=== PATIENT | female | born 1980 | race Caucasian/White ===

== ENCOUNTER 2017-07-28 08:02 | Emergency (ER) | payer OTHER ==
[2017-07-28 08:09] VITALS: BP 114/66
--- NOTE | 2017-07-28 08:53 | RAD ---
HISTORY: Left wrist trauma, pain COMPARISONS: None VIEWS: 3, Frontal, lateral, and oblique views of the left wrist FINDINGS: BONE DENSITY: Normal. BONES: There is no displaced fracture. There is a bone island of the fourth metacarpal. JOINTS: There is no arthropathy. ALIGNMENT: There is no dislocation. SOFT TISSUES: Unremarkable. OTHER FINDINGS: None. IMPRESSION: NO ACUTE OSSEOUS INJURY. IF SYMPTOMS PERSIST, RECOMMEND REPEAT IMAGING.
--- NOTE | 2017-07-28 08:57 | UC ---
Hand/Wrist HPI - HPI Summary HPI Summary: INJURED LEFT WRIST 4 DAYS AGO WHILE MOVING FURNITURE. ALSO HAS TWIN 8 MONTH OLDS AND IS LIFTING THEM A LOT. HAS HAD WORSENING PAIN ULNAR SIDE LEFT WRIST. NO SWELLING. - History Of Current Complaint Chief Complaint: UCUpperExtremity Stated Complaint: WRIST INJURY Time Seen by Provider: 07/28/17 08:27 Hx Obtained From: Patient Hx Last Menstrual Period: breast feeding Onset/Duration: Sudden Onset, Lasting Days, Still Present Severity Initially: Moderate Severity Currently: Moderate Pain Intensity: 3 Pain Scale Used: 0-10 Numeric Character Of Pain: Aching Aggravating Factor(s): Movement Alleviating Factor(s): Rest Related History: Dominant Hand Right - Allergies/Home Medications Allergies/Adverse Reactions: Allergies Allergy/AdvReac Type Severity Reaction Status Date / Time Clindamycin Allergy Severe GI ISSUES Verified 07/28/17 08:09 Sulfa Antibiotics Allergy Unknown Unknown Verified 07/28/17 08:09 Reaction Details Penicillins Allergy Hives Verified 07/28/17 08:09 Home Medications: Home Medications NK [No Home Medications Reported] 07/28/17 [History Confirmed 07/28/17] PMH/Surg Hx/FS Hx/Imm Hx - Additional Past Medical History Additional PMH: ENDOMETRIOSIS - Surgical History Surgical History: Yes Surgery Procedure, Year, and Place: Edometriosis, 2011 and 2013 - Family History Known Family History: Positive: Hypertension - Social History Alcohol Use: Occasionally Substance Use Type: None Smoking Status (MU): Former Smoker Review of Systems Constitutional: Negative Skin: Negative Respiratory: Negative Cardiovascular: Negative Gastrointestinal: Negative Musculoskeletal: Arthralgia, Decreased ROM All Other Systems Reviewed And Are Negative: Yes Physical Exam Triage Information Reviewed: Yes Appearance: Well-Appearing, No Pain Distress, Well-Nourished Vital Signs: Initial Vital Signs Temp 98.3 F 07/28/17 08:05 Pulse 79 07/28/17 08:05 Resp 16 07/28/17 08:05 BP 114/66 07/28/17 08:05 Pulse Ox 100 07/28/17 08:05 Vital Signs Reviewed: Yes Eyes: Positive: Conjunctiva Clear ENT: Positive: Hearing grossly normal Neck: Positive: Supple Respiratory: Positive: No respiratory distress, No accessory muscle use Cardiovascular: Positive: Pulses Normal Abdomen Description: Positive: Soft Musculoskeletal: Positive: No Edema, ROM Limited @ - LEFT WRIST, Other: - TTP ULNAR STYLOID AND ULNAR SIDE OF WRIST Neurological: Positive: Alert Psychological: Positive: Age Appropriate Behavior Skin: Negative: rashes Diagnostics - Radiology LEFT WRIST XRAY Xray Interpretation: No Acute Changes Radiology Interpretation Completed By: Radiologist Hand/Wrist Course/Dx - Differential Dx/Diagnosis Differential Diagnosis/HQI/PQRI: Dislocation Provider Diagnoses: LEFT WRIST SPRAIN Discharge - Discharge Plan Condition: Stable Disposition: HOME Patient Education Materials: Wrist Sprain (ED) Referrals: [facility] [Provider Group] - 2 Weeks Sonali Becerril NP [Primary Care Provider] - If Needed Additional Instructions: XRAYS UNREMARKABLE TODAY. SPLINT NEEDED FOR COMFORT. OTC MEDS NEEDED FOR PAIN. IF NOT IMPROVING OVER THE NEXT 1-2 WEEKS SEEK FOLLOW-UP WITH PCP OR ORTHO.
== END 2017-07-28 09:08 | disposition home or self-care (01) ==
LOC: UCEAST 08:02
DX: S63.502A Unspecified sprain of left wrist, initial encounter (principal); X50.0XXA Overexertion from strenuous movement or load, initial encounter; Y92.9 Unspecified place or not applicable; Z88.3 Allergy status to other anti-infective agents; Z88.0 Allergy status to penicillin; Z88.2 Allergy status to sulfonamides; Z87.891 Personal history of nicotine dependence; Z87.42 Personal history of other diseases of the female genital tract
CPT/HCPCS: 99211; G0463

== ENCOUNTER 2018-04-07 16:47 | Emergency (ER) | payer OTHER ==
[2018-04-07 17:02] VITALS: BP 111/67
[2018-04-07] MEDS ORDERED: Ketorolac INJ* 30 MG/ML 1 ML VIAL IM ONE (17:16)
--- NOTE | 2018-04-07 17:23 | UC ---
Abdominal Pain Female HPI - HPI Summary HPI Summary: 38 yo female with onset of LLQ abd pain 2 days ago constant 8/10 no change with position or with OTC meds percocet did not help no UTI symptoms no vag d/c or itch hx of stage 4 endometriosis this pain is worse than she ever had with endometrial cyst rupture no f/c no n/v/d Patient states she is here for an U/S - History of Current Complaint Chief Complaint: UCAbdominalPain Stated Complaint: ABDOMINAL PAIN Time Seen by Provider: 04/07/18 16:58 Hx Obtained From: Patient Hx Last Menstrual Period: 03/25/2018 Onset/Duration: Gradual Onset Timing: Constant Severity Initially: Severe Severity Currently: Severe Pain Intensity: 8 Pain Scale Used: 0-10 Numeric Location: Discrete At: LLQ Radiates: No Character: Unable to describe Aggravating Factor(s): Nothing Alleviating Factor(s): Nothing Associated Signs and Symptoms: Positive: Negative Allergies/Adverse Reactions: Allergies Allergy/AdvReac Type Severity Reaction Status Date / Time Penicillins Allergy Hives Verified 04/07/18 17:03 Sulfa (Sulfonamide Allergy Unknown Verified 04/07/18 17:04 Antibiotics) Reaction Details PMH/Surg Hx/FS Hx/Imm Hx Previously Healthy: Yes - Surgical History Surgical History: Yes Surgery Procedure, Year, and Place: Edometriosis, 2012 and 2013 - Family History Known Family History: Positive: Hypertension, Other - hx kidney stones - Social History Alcohol Use: Occasionally Substance Use Type: None Smoking Status (MU): Former Smoker Review of Systems Constitutional: Negative Skin: Negative Eyes: Negative ENT: Negative Respiratory: Negative Cardiovascular: Negative Gastrointestinal: Abdominal Pain Genitourinary: Negative Motor: Negative Neurovascular: Negative Musculoskeletal: Negative Neurological: Negative Psychological: Negative Is Patient Immunocompromised?: No All Other Systems Reviewed And Are Negative: Yes Physical Exam Triage Information Reviewed: Yes Appearance: Well-Appearing, No Pain Distress, Well-Nourished Vital Signs: Initial Vital Signs Temp 97.3 F 04/07/18 16:54 Pulse 85 04/07/18 16:54 Resp 16 04/07/18 16:54 BP 111/67 04/07/18 16:54 Pulse Ox 98 04/07/18 16:54 Vital Signs Reviewed: Yes Eyes: Positive: Conjunctiva Clear ENT: Positive: Hearing grossly normal, Uvula midline. Negative: Nasal congestion, Nasal drainage, Tonsillar swelling, Tonsillar exudate, Trismus, Muffled voice Neck: Positive: Supple, Nontender Respiratory: Positive: Lungs clear, Normal breath sounds, No respiratory distress, No accessory muscle use Cardiovascular: Positive: RRR, No Murmur Abdomen Description: Negative: Nontender - tender LLQ, CVA Tenderness (R), CVA Tenderness (L), Distended, Guarding Musculoskeletal: Positive: ROM Intact, No Edema Neurological: Positive: Alert Psychological Exam: Normal Skin Exam: Normal Abd Pain Female Course/Dx - Course Course Of Treatment: Pt came out of the room and states she wants to go to the ER now. Declines toradol, declines providing a urine. States her wants here home [place] to help care for the 16 mo twins. She wishes to drive there. - Differential Dx/Diagnosis Provider Diagnoses: Left LQ abd pain of uncertain cause Discharge - Sign-Out/Discharge Documenting (check all that apply): Discharge/Admit/Transfer - Discharge Plan Condition: Stable Disposition: TRANS HIGHER LVL OF CARE FAC Referrals: Sonali Becerril NP [Primary Care Provider] - Additional Instructions: I suggest you go to the ER - Billing Disposition and Condition Condition: STABLE Disposition: Trans Higher Lvl of Care Fac
== END 2018-04-07 17:28 | disposition short-term general hospital (02) ==
LOC: UCEAST 16:47
DX: R10.32 Left lower quadrant pain (principal); Z87.891 Personal history of nicotine dependence; Z87.42 Personal history of other diseases of the female genital tract
CPT/HCPCS: 99212; G0463; J1885

== ENCOUNTER 2018-04-07 17:54 | Emergency (ER) | payer OTHER ==
[2018-04-07 18:02] VITALS: BP 114/74
== END 2018-04-07 20:01 | disposition left against medical advice (07) ==
LOC: ED 17:54
DX: R10.9 Unspecified abdominal pain (principal); Z53.21 Procedure and treatment not carried out due to patient leaving prior to being seen by health care provider

== ENCOUNTER 2018-05-01 19:54 | Emergency (ER) | payer OTHER ==
--- OUTSIDE RECORDS SUMMARY | 2018-05-01 20:00 | XMS REPORT ---
:1980 External Reference #:[id number] Author Organization [facility] Address [address] [place] [address] Phone [phone] Care Team Providers Name Role Phone Lisseth Verma M.D. Care Team Information Geriatric Physical Therapist Unavailable Lisseth Verma M.D. Primary Care Physician Unavailable Payers Type Date Identification Payment Subscriber Numbers Provider Health Maintenance Effective: Policy Number: Tomi Ewing Organization (O) 10/25/2016 [id number] [employer] Group Number: [id number] [id number] PayID: [id number] [place] [address] Problems Description No Active Problems Family History Date Family Member(s) Problem(s) Comments Father 74 Father Stroke Father carotid stenosis Father Amyotrophic Lateral Sclerosis Mother 71 Mother Cardiac Arrhythmia Paternal Grandmother due to Alzheimer's Disease () Paternal Grandmother due to Dementia () Maternal Grandfather 47 Maternal Grandfather due to CAD () Maternal Grandmother Breast Cancer Paternal Aunts due to Lung Cancer () Social History Type Date Description Comments Marital Status Legal Status: Lives With Spouse Lives With Son twins Lives With Daughter Diet Healthy, Well Balanced 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, director finance administration Cigarette Use Denies Tobacco Use ETOH Use Denies alcohol use Smoking Nonsmoker Exercise Type/Frequency Exercises sporadically Allergies, Adverse Reactions, Alerts Date Description Reaction Status Severity Comments 06/14/2015 Sulfa unknown, childhood active 06/14/2015 Penicillin rash active Medications Medication Date Status Form Strength Qnty SIG Indications Ordering Provider Tramadol HCL 04/09 Active Tablets 50mg 30tab 1-2 every 6 N80.8 s hours as Jerrica, needed pain by CORN BREEDER mouth No Active 12/15 Hx Unknown Medications /2017 - 04/09 Flovent HFA 08/18 Hx Aerosol 110mcg/Ac 24gm 2 puffs Maria Antonia C. /2016 t inhaled twice Jose Alberto, - daily EDUCATIONAL THERAPY TEACHER 12/15 Medrol 08/17 Hx Tablets 4mg 1tabs take dose pack Antonio Galaviz as directed Carlos, - wait 4 hours EDUCATIONAL THERAPY TEACHER 12/15 after dose /2017 before , otherwise pump and dump Tessalon 08/17 Hx Capsules 100mg 30cap take 2 tablets Antonio Rees s every 8 hours Carlos, - as needed for EDUCATIONAL THERAPY TEACHER 12/15 cough Fluconazole 12/14 Hx Tablets 150mg 6tabs 1 by mouth every other Jerrica, - day x 3 doses; CORN BREEDER 08/17 if, in one week, symptoms persist, repeat Nystatin 12/14 Hx Cream [id number] 30gm apply t/GM sparingly to Jerrica, - bilateral CORN BREEDER 08/17 nipples times daily, no need to wash off prior to Zofran Odt 10/24 Hx Tablets 4mg 15tab 1 unit by Dispers s mouth every 6 [place], - hours as M.D. 08/17 needed Prednisone 10/03 Hx Tablets 10mg 10tab 1 by mouth Sonali () s twice a day x [facility], - 5 days CORN BREEDER 03/21 Biaxin 09/30 Hx Tablets 250mg 14tab take one s tablet by [facility], - mouth twice a CORN BREEDER 03/21 day x 7 finish all medication Cheratussin 09/30 Hx Solution 30-10-100 100ml 5 milliliters mg/5ML by mouth every Jerrica, - 12 hours as CORN BREEDER 03/21 needed cough Benzonatate 09/30 Hx Capsules 100mg 45cap 1 by mouth s three times a [facility], - day as needed CORN BREEDER 08/17 coughing Progesterone Hx Capsules 200mg take 1 capsule Unknown Micronized /0000 at bedtime - 07/09 Estrogen 00/00 Hx ivf Unknown /0000 - 07/09 Aspir-81 Hx Tablets 81mg 1 by mouth Unknown /0000 DR every day - 07/09 Multivitamins Hx Capsules 1 by mouth Unknown /0000 every day - 07/09 00 Hx Tablets Unknown /0000 - 08/17 Cefuroxime Hx Tablets 500mg 1 by mouth Unknown Axetil /0000 twice a day - 12/15 Proventil HFA Hx Aerosol 108(90Bas inhale 1-2 Unknown /0000 e) puffs every 4 - mcg/Act hours as 12/15 needed for wheezing or cough Medications Administered in Office Medication Date Status Form Strength Qnty SIG Indications Ordering Provider Injection Injection Sonali Subcutaneous Or 2018 Jerrica, Intramuscular CORN BREEDER Immunizations CPT Code Status Date Vaccine Lot # [id number] Given 07/09/2015 MMR Virus Immunization [id number] Vital Signs Date Vital Result Comment 04/09/2018 BP Systolic 100 mmHg BP Diastolic 62 mmHg Heart Rate 84 /min Body Temperature 98.4 F Height 64.5 inches 5'4.50" Weight 158.00 lb BMI (Body Mass Index) 26.7 kg/m2 12/15/2017 BP Systolic 108 mmHg BP Diastolic 56 mmHg Heart Rate 72 /min Body Temperature 97.9 F Respiratory Rate 16 /min Height 64.5 inches 5'4.50" Weight 160.00 lb BMI (Body Mass Index) 27.0 kg/m2 08/17/2017 BP Systolic 122 mmHg BP Diastolic 60 mmHg Heart Rate 74 /min Body Temperature 98.4 F Height 64.5 inches 5'4.50" Weight 166.00 lb BMI (Body Mass Index) 28.1 kg/m2 03/21/2016 BP Systolic 110 mmHg BP Diastolic 74 mmHg Heart Rate 68 /min Body Temperature 98.6 F Respiratory Rate 16 /min Height 64.5 inches 5'4.50" Weight 152.00 lb BMI (Body Mass Index) 25.7 kg/m2 09/30/2015 BP Systolic 110 mmHg BP Diastolic 76 mmHg Heart Rate 72 /min Body Temperature 98.4 F Respiratory Rate 18 /min Height 64.5 inches 5'4.50" Weight 156.00 lb BMI (Body Mass Index) 26.4 kg/m2 07/09/2015 BP Systolic 110 mmHg BP Diastolic 82 mmHg Heart Rate 68 /min Body Temperature 98.3 F Height 64.5 inches 5'4.50" Weight 151.00 lb BMI (Body Mass Index) 25.5 kg/m2 06/14/2015 BP Systolic 100 mmHg BP Diastolic 62 mmHg Heart Rate 96 /min Body Temperature 99.4 F Height 64.5 inches 5'4.50" Weight 150.50 lb BMI (Body Mass Index) 25.4 kg/m2 Results Test Date Test Result H/L Range Note Laboratory test finding 12/15/2017 Cytology Thinprep SEE RESULT BELOW 1 w/rfx([facility] [place]) Comprehensive Metabolic 11/23/2017 Sodium 135 mEq/L 134-149 Prof Potassium 4.1 mEq/L 3.6-5.5 Chloride 104 mEq/L 94-112 Carbon Dioxide 31 mEq/L 21-32 Glucose 92 mg/dL 70-105 BUN 10 mg/dL 6-26 Creatinine 0.7 mg/dL 0.6-1.4 BUN/Creat Ratio 14.3 CALC 8.0-36.0 Calcium 9.4 mg/dL 8.6-10.2 Total Protein 6.8 g/dL 6.4-8.3 Albumin 4.6 g/dL 3.8-5.5 Globulin 2.2 g/dL 2.0-4.8 A/G Ratio 2.1 CALC 0.6-2.3 Alk. Phosphatase 71 U/L 30-110 Alt (SGPT) 13 U/L 7-35 Ast (Sgot) 17 U/L 5-34 Total Bilirubin 0.4 mg/dL 0.2-1.3 GFR Non- >60 ml/min/1.73m^ >=60 GFR >60 ml/min/1.73m^ >=60 Lipid Profile 11/23/2017 Cholesterol 203 mg/dL High 120-200 Triglycerides 157 mg/dL 30-200 HDL Cholesterol 63 mg/dL 30-85 LDL (Calculated) 109 CALC 0-129 VLDL Cholesterol 31 mg/dL 0-50 HDL Risk Factor 3.2 CALC 0.0-4.4 Laboratory test finding 11/23/2017 TSH 1.54 mIU/L 0.50-6.00 Free T4 0.98 ng/dL 0.75-1.54 Complete Blood Count 11/23/2017 WBC 6.9 x10^3/UL 3.6-9.6 RBC 4.33 x10^6/UL 3.90-5.70 HGB 13.0 g/dL 12.1-17.2 HCT 38 % 36-50 MCV 87.0 fL 82.2-97.4 MCH 30.0 pg 27.6-33.3 MCHC 34.3 g/dL 33.0-35.5 RDW 12.8 % 11.6-13.7 PLT 298 x10^3/UL 150-400 MPV 7.1 fL Low 7.4-10.4 Gran # 4.2 x10^3/UL 1.5-7.2 Lymph# 2.3 x10^3/UL 0.7-4.9 [place]# 0.4 x10^3/UL 0.1-0.9 Gran % 60.3 % 42.2-75.2 Lymph % 33.9 % 20.5-51.1 [place]% 5.8 % 1.7-9.3 Laboratory test finding 04/29/2016 HCG 743960.00 mIU/mL 2 C Reactive Protein 14.11 mg/L High < 5.00 3 Comp Metabolic Panel 04/29/2016 Sodium 132 mmol/L Low 133-145 Potassium 4.0 mmol/L 3.5-5.0 Chloride 100 mmol/L Low 101-111 Co2 Carbon Dioxide 24 mmol/L 22-32 Anion Gap 8 mmol/L 2-11 Glucose 79 mg/dL 70-100 Blood Urea Nitrogen 9 mg/dL 6-24 Creatinine 0.66 mg/dL 0.51-0.95 BUN/Creatinine Ratio 13.6 8-20 Calcium 9.9 mg/dL 8.6-10.3 Total Protein 7.3 g/dL 6.4-8.9 Albumin 3.9 g/dL 3.2-5.2 Globulin 3.4 g/dL 2-4 Albumin/Globulin Ratio 1.1 1-3 Total Bilirubin 0.30 mg/dL 0.2-1.0 Alkaline Phosphatase 55 U/L 34-104 Alt 11 U/L 7-52 Ast 15 U/L 13-39 Egfr Non- 100.2 >60 Egfr 128.9 >60 4 Abo/RH Type 04/29/2016 Patient Blood Type O Negative CBC Auto Diff 04/29/2016 White Blood Count 13.8 10^3/uL High 3.5-10.8 Red Blood Count 4.28 10^6/uL 4.0-5.4 Hemoglobin 12.5 g/dL 12.0-16.0 Hematocrit 38 % 35-47 Mean Corpuscular Volume 88 fL 80-97 Mean Corpuscular Hemoglobin 29 pg 27-31 Mean Corpuscular HGB Conc 33 g/dL 31-36 Red Cell Distribution Width 13 % 10.5-15 Platelet Count 320 10^3/uL 150-450 Mean Platelet Volume 8 um3 7.4-10.4 Abs Neutrophils 9.3 10^3/uL High 1.5-7.7 Abs Lymphocytes 3.1 10^3/uL 1.0-4.8 Abs Monocytes 0.8 10^3/uL 0-0.8 Abs Eosinophils 0.5 10^3/uL 0-0.6 Abs Basophils 0 10^3/uL 0-0.2 Abs Nucleated RBC 0 10^3/uL Granulocyte % 67.6 % 38-83 Lymphocyte % 22.4 % Low 25-47 Monocyte % 5.8 % 1-9 Eosinophil % 4.0 % 0-6 Basophil % 0.2 % 0-2 Nucleated Red Blood Cells % 0 Laboratory test finding 04/29/2016 Inr/Protime 0.84 Low 0.89-1.11 Partial Thrombo Time PTT 27.7 seconds 26.0-36.3 Laboratory test finding 04/06/2016 Progesterone 39.3 ng/mL 5, 6 hCG,Beta Subunit, Qnt, Serum 75583 mIU/mL 5, 7 Laboratory test finding 12/31/2015 hCG,Beta Subunit, Qnt, Serum <1 mIU/mL 8, 9 Urine (Fma) 12/31/2015 SP Grav 1.015 Urine, (Fma/CMC/CTX) negative 1 SEE RESULT BELOW Name: KATHARINA EWING : [address]: Lisseth Verma MD Acct: [id number] Unit: [id number] AGE: 37 Location: [facility] Re12/15/17 SEX: F Status: REG REF SPEC: [id number] JIMI: 12/15/17-[address]: Lisseth Verma MD REQ: [id number] RECD: 12/15/17 STATUS: SOUT _ ORDERED: TP IMAGE ANAL, HPV/Thin Prep, HPV 16/18 GENE COMMENTS: [id number] Negative for Intraepithelial lesion or Malignancy A. Ectocervical/Endocervical Specimen Adequacy: Satisfactory of evaluation Transformation zone component not identified Patient Information: HPV: High risk HPV RNA testing regardless of pap results. HPV 16/18 Genotype Reflex Actual Specimen Date: 12/15/17 Last Menstrual Date: 11/25/17 ?: N Post Menopausal?: N Hysterectomy?: N Previous Abnormal Pap Smears?:Y If Yes, enter Diagnosis: Patient states: previous abnormal unknown dx. Date Time Test Result Flag (u) Normal Range 12/15/17 1629 @ HPV RNA RFLX GE Negative Negative @ @ The high-risk HPV types detected by the assay include: 16, @ 18, 31, 33, 35, 39, 45, 51, 52, 56, 58, 59, 66, and 68. Signed (signature on file) ELLIOTT Lakhani(ASCP) 12/16 1228 This Pap test was evaluated with the assistance of the iSentiumPrep Test Imaging System. Due to cytologic findings at the vocational technical education director microscope, comprehensive manual rescreening by a Fuel Testing Technician may be required. The Pap Smear is a screening test designed to aid in the detection of premalignant and malignant conditions of the uterine cervix. It is not a diagnostic procedure and should not be used as the sole means of detecting cervical cancer. Both false- positive and false- negative reports do occur. Depending on your risk status, a Pap smear should be obtained and evaluated every 1-3 years. END OF REPORT * ML=Testing performed at Main Lab DEPARTMENT OF PATHOLOGY, [address] [place] [address] Art Wood M.D. Director [facility] # [id number] 2 <5.0 Negative 5.0 - 25.0 Indeterminate (Repeat testing recommended after 72 hours) >25.0 Positive Perimenopausal women can display HCG levels of up to 20 mIU/mL 3 Acute inflammation: >10.00 4 Because ethnic data is not always readily available, this report includes an eGFR for both -Americans and non- Americans. The National Kidney Disease Education Program (NKDEP) does not endorse the use of the MDRD equation for patients that are not between the ages of 18 and 70, are , have extremes of body size, muscle mass, or nutritional status, or are non- or non-. According to the National Kidney Foundation, irrespective of diagnosis, the stage of the disease is based on the level of kidney function: Stage Description GFR(mL/min/1.73 m(2)) 1 Kidney damage with normal or decreased GFR 90 2 Kidney damage with mild decrease in GFR 60-89 3 Moderate decrease in GFR 30-59 4 Severe decrease in GFR 15-29 5 Kidney failure <15 (or dialysis) 5 1SST 6 Follicular phase 0.2 - 1.5 Luteal phase 1.7 - 27.0 Ovulation phase 0.8 - 3.0 First trimester 8.8 - 48.6 Second trimester 12.4 - 75.8 Third trimester 58.5 - 222.3 Postmenopausal 0.1 - 0.8 7 Female (Non-) 0 - 5 (Postmenopausal) 0 - 8 Female () Weeks of Gestation 3 6 - 71 4 10 - 750 5 217 - 7138 6 158 - 01839 7 3697 -209484 8 38737 -155656 9 71794 -306779 10 80535 -226343 12 28185 -486312 14 47854 - 95447 15 88745 - 58670 16 9040 - 16367 17 6266 - 50629 18 8099 - 36497 Specimen was diluted in order to obtain results. Results were repeated. Hem[employer] ECLIA methodology 8 1 sst 9 Female (Non-) 0 - 5 (Postmenopausal) 0 - 8 Female () Weeks of Gestation 3 6 - 71 4 10 - 750 5 217 - 7138 6 158 - 44877 7 3697 -220525 8 25260 -917793 9 49259 -434761 10 82505 -393342 12 56297 -279953 14 61569 - 31356 15 53409 - 82351 16 9040 - 69526 17 8175 - 46828 18 8099 - 25156 [employer] ECLIA methodology Procedures Date CPT Code Description Status 04/09/2018 11542 Injection Subcutaneous Or Intramuscular Completed 12/15/2017 11860 CPHL SHQ Completed 08/17/2017 78393 Pulse Oximetry Completed Encounters Type Date Location Provider CPT E/M Dx Office Visit 08/17/2017 9:45a Main Office Amber Galaviz Gonzalez, EDUCATIONAL THERAPY TEACHER 16702 R06.02 R05 R53.83 Office Visit 03/21/2016 9:30a [facility] Bárbara Springer, EDUCATIONAL THERAPY TEACHER 97841 S40.861A W57.xxxA Office Visit 09/30/2015 4:15p [facility] Sonali Rodriguezbhart, [facility] [address]4575 R05 Office Visit 07/09/2015 8:00a Main Office Sonali Rodriguezbhart [facility] 26668 780.50 628.8 V06.4 Office Visit 06/14/2015 2:00p [facility] Office Sonali Rodriguezbhart [facility] 11277 782.9 780.50 617.9 628.8 Plan of Care 04/09/2018 - Sonali Becerril, FNPN80.8 Other endometriosisNew Medication: Tramadol HCL 50 mgNew Labs:CBC Electronic (Fma)CCS-Comp Metabolic (Fma) BqsajB12.30 Lower abdominal pain, unspecifiedNew Labs:Ua - Micro (Fma)Z23 Encounter for immunizationAllComments:~B_~U_Medication Management~b_~u_ Patient Understands medications he 's taking? Yes No Are there Barriers to Adherence? Yes No Has the patient been asked about herbal supplements and therapies, and OTC meds? Yes No
[2018-05-01 20:03] VITALS: BP 107/67
--- NOTE | 2018-05-01 20:11 | UC ---
Skin Complaint HPI - HPI Summary HPI Summary: 38 yo female presents with ?splinter in her right 5th digit nail. She tells me that yesterday she was cleaning her wooden shelf and slide her hand across when a sliver went underneath the lateral aspect of her nail. She did not see anything to remove, but soaked it in salt water. Here today with increased pain and some redness/swelling. Tetanus was about 2 years ago. Denies numbness or tingling. Has not taken anything for pain. - History of Current Complaint Chief Complaint: UCSkin Time Seen by Provider: 05/01/18 20:11 Stated Complaint: SORE FINGER Hx Obtained From: Patient Hx Last Menstrual Period: 1 week ago Onset/Duration: Sudden Onset Onset Severity: Mild Current Severity: Moderate Pain Intensity: 5 Pain Scale Used: 0-10 Numeric - Allergy/Home Medications Allergies/Adverse Reactions: Allergies Allergy/AdvReac Type Severity Reaction Status Date / Time Penicillins Allergy Hives Verified 05/01/18 20:03 Sulfa (Sulfonamide Allergy Unknown Verified 05/01/18 20:03 Antibiotics) Reaction Details Review of Systems Constitutional: Negative Skin: Other - ?Splint 5th digit right Respiratory: Negative Cardiovascular: Negative Neurovascular: Negative Musculoskeletal: Negative Neurological: Negative Psychological: Negative All Other Systems Reviewed And Are Negative: Yes PMH/Surg Hx/FS Hx/Imm Hx - Additional Past Medical History Additional PMH: None Previously Healthy: Yes - Surgical History Surgical History: Yes Surgery Procedure, Year, and Place: Edometriosis, 2011 and 2012. - Family History Known Family History: Positive: Hypertension, Other - hx kidney stones - Social History Occupation: Employed Full-time Lives: With Family Alcohol Use: Occasionally Substance Use Type: None Smoking Status (MU): Former Smoker Physical Exam - Summary Physical Exam Summary: GENERAL: NAD. WDWN. No pain distress. SKIN: Right 5th distal digit: no obvious splinter underneath nail. Mild erythema and edema. No streaking, bleeding, or drainage. CHEST: No accessory muscle use. Breathing comfortably and in no distress. CV: Pulses intact radial and ulnar. MSK: Moderate TTP about right distal pinky. FROM right hand all fingers NEURO: Alert. PSYCH: Age appropriate behavior. Triage Information Reviewed: Yes Vital Signs: Initial Vital Signs Temp 98.3 F 05/01/18 19:59 Pulse 77 05/01/18 19:59 Resp 15 05/01/18 19:59 BP 107/67 05/01/18 19:59 Pulse Ox 99 05/01/18 19:59 Course/Dx - Course Course Of Treatment: Although I do not see an obvious splinter, pt requested that I try to search for one under her nail. A time out was performed, witnessed , and signed. The area was cleansed with an alcohol pad. 1mL of 2% lidocaine without epi was administered and good anesthetization was achieved. Adson and splinter forceps were used to separate the nail from the skin - no splinter was observed. Pt tolerated procedure well. She is requesting something for pain, has had Toradol IM in the past and would like this again, therefore 30mg toradol IM was given in the clinical course. Pt advised to continue soaking the nail and return if symptoms persist. Will rx for keflex for potential infection. - Diagnoses Provider Diagnoses: Splinter right 5th digit Discharge - Sign-Out/Discharge Documenting (check all that apply): Discharge/Admit/Transfer - Discharge Plan Condition: Stable Disposition: HOME Prescriptions: Cephalexin CAP* [Keflex CAP*] 500 mg PO BID #10 cap Patient Education Materials: [facility] (ED) Referrals: Sonali Becerril NP [Primary Care Provider] - Additional Instructions: If you develop a fever, shortness of breath, chest pain, new or worsening symptoms - please call your PCP or go to the ED. - Billing Disposition and Condition Condition: STABLE Disposition: Home
[2018-05-01] MEDS ORDERED: Lidocaine 2% PF * 5 ML VIAL INJ ONE (20:30)
[2018-05-01] MEDS ORDERED: Ketorolac INJ* 30 MG/ML 1 ML VIAL IM ONE (20:55)
== END 2018-05-01 21:06 | disposition home or self-care (01) ==
LOC: UCEAST 19:54
DX: S60.456A Superficial foreign body of right little finger, initial encounter (principal); X58.XXXA Exposure to other specified factors, initial encounter; Y93.E9 Activity, other interior property and clothing maintenance; Y92.009 Unspecified place in unspecified non-institutional (private) residence as the place of occurrence of the external cause; Z88.0 Allergy status to penicillin; Z88.2 Allergy status to sulfonamides; Z82.49 Family history of ischemic heart disease and other diseases of the circulatory system; Z84.1 Family history of disorders of kidney and ureter; Z87.891 Personal history of nicotine dependence
CPT/HCPCS: 96372; 99212; G0463; J1885